=== PATIENT | male | born 1970 | race Caucasian/White ===

== ENCOUNTER → 2019-06-24 11:47 | Outpatient (BNVA) | payer SELFPAY | PROVIDERS: Visit Provider Emergency Medicine | DX: T17.308A Unspecified foreign body in larynx causing other injury, initial encounter (principal); F51.09 Other insomnia not due to a substance or known physiological condition; R06.89 Other abnormalities of breathing; R06.83 Snoring; G47.30 Sleep apnea, unspecified; Z76.89 Persons encountering health services in other specified circumstances | CPT/HCPCS: 80053; 83880; 85025 ==